=== PATIENT | female | born 1990 | race Hispanic/Latino ===

== ENCOUNTER 2020-01-27 04:45 | Emergency (ER) | payer SELFPAY ==
[2020-01-27] MEDS ORDERED: Lorazepam 1 MG TAB ONE (05:13)
[2020-01-27] MEDS ORDERED: Acetaminophen 500 MG TAB ONE (05:13)
== END 2020-01-27 06:40 | disposition home or self-care (01) ==
LOC: ERS 04:45
DX: R56.9 Unspecified convulsions (principal); F19.939 Other psychoactive substance use, unspecified with withdrawal, unspecified; F32.9 Major depressive disorder, single episode, unspecified; F41.9 Anxiety disorder, unspecified; Z87.891 Personal history of nicotine dependence
CPT/HCPCS: 99283